=== PATIENT | female | born 1965 | race Caucasian/White ===

== ENCOUNTER → 2020-06-14 08:32 | Outpatient (BNVA) | payer OTHER, SELFPAY | PROVIDERS: Visit Provider Nurse Practitioner Family | DX: Z20.828 Contact with and (suspected) exposure to other viral communicable diseases (principal) | CPT/HCPCS: 87635 ==

== ENCOUNTER 2020-08-09 12:49 | Outpatient (CLI) | payer OTHER, SELFPAY ==
--- NOTE | 2020-08-09 13:03 | XR_ITS ---
WS: [id number] Left knee, AP and lateral views, 08/09/2020 Clinical Data: PAIN Comparison: None. Findings: No fractures or dislocations are seen. There is medial joint compartment narrowing with a small media l femoral condyle osteophyte and medial tibial plateau osteophyte.There is a small spur of the services clerk ior superior patella. XR/XR knee LT 1-2V 44043 Impression: Medial joint compartment narrowing of the left knee and posterior patellar spur ring.
--- NOTE | 2020-08-09 13:03 | XR_ITS ---
WS: [id number] Right knee, AP and lateral views, 08/09/2020 Clinical Data: PAIN Comparison: None. Findings: No fractures or dislocations are seen. There is medial joint compartment narrowing with a small media l tibial plateau osteophyte and a small medial femoral condyle osteophyte. There are synovial calcifi cations in the posterior joint. The patella appears normal.. The patella is intact. The soft tissues are unremarkable. XR/XR knee RT 1-2V [id number] Impression: 1. Medial joint compartment narrowing of the right knee. 2. Synovial calcifications in the posterior joint.
== END 2020-08-09 12:50 | disposition home or self-care (01) ==
LOC: RAD 12:54
PROVIDERS: Visit Provider Internal Medicine
DX: M25.561 Pain in right knee (principal); M25.562 Pain in left knee
CPT/HCPCS: 73560

== ENCOUNTER → 2021-07-02 10:23 | Outpatient (BNVA) | payer OTHER, SELFPAY | PROVIDERS: Visit Provider Nurse Practitioner Family | DX: Z78.0 Asymptomatic menopausal state (principal); G47.30 Sleep apnea, unspecified | CPT/HCPCS: 80053; 80061; 84443; 85025 ==

== ENCOUNTER → 2021-08-07 13:54 | Outpatient (BNVA) | payer OTHER, SELFPAY | PROVIDERS: Visit Provider Nurse Practitioner Family | DX: Z20.822 Contact with and (suspected) exposure to COVID-19 (principal) | CPT/HCPCS: 87635 ==

== ENCOUNTER 2022-02-17 11:53 | Emergency (ER) | payer SELFPAY ==
[2022-02-17 11:55] VITALS: BP 127/81; PULSE 75; RESP 16; TEMP 36.9; O2SAT 97; BMI 50.5
[2022-02-17 12:07] VITALS: BP 155/74; PULSE 72; RESP 15; O2SAT 95
--- NOTE | 2022-02-17 12:08 | ECG_ITS ---
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 Measurements Intervals [place] Rate: 72 P: 38 MO: 166 QRS: -32 QRSD: 88 T: 21 QT: 370 QTc: 408 Interpretive Statements SINUS RHYTHM LEFT AXIS DEVIATION [QRS AXIS < -30] LOW QRS VOLTAGE IN PRECORDIAL LEADS [QRS DEFLECTION < 1.0 mV IN CHEST LEADS] PATTERN CONSISTENT WITH PULMONARY DISEASE No previous ECG available for comparison Electronically Signed On 02-17-2022 20:59:57 CDT by Josh David M.D. [email or web address]/store/[id number]
--- NOTE | 2022-02-17 12:08 | XRR_ITS ---
PROCEDURE INFORMATION: Exam: XR Chest Exam date and time: 02/17/2022 12:32 PM Age: 56 years old Clinical indication: Pain; Angina pectoris; Additional info: Cp TECHNIQUE: Imaging protocol: Radiologic exam of the chest. Views: 1 view. COMPARISON: No relevant prior studies available. FINDINGS: Lungs: Unremarkable. No consolidation. Pleural spaces: Unremarkable. No pleural effusion. No pneumothorax. Heart/Mediastinum: There is a left pericardial fat pad. Bones/joints: Unremarkable. XR/XR chest 1V portable [id number] IMPRESSION: No evidence for acute cardiopulmonary disease.
[2022-02-17 12:14] LABS: Basophils # 0.1 10^3/uL (0.0-0.1); Basophils % 0.8 %; Eosinophils # 0.3 10^3/uL (0.0-0.8); Eosinophils % 3.6 %; Hematocrit 39.4 % (37.0-47.0); Hemoglobin 12.2 g/dL (11.5-15.3); Lymphocytes % 35.4 %; Mean Corpuscular Hemoglobin 28.2 pg (28.0-34.0); Mean Platelet Volume 10.7 fL (7.4-10.4); Monocytes # 0.6 10^3/uL (0.2-0.9); Monocytes % 6.7 %; Neutrophils # 4.49 10^3/uL (1.8-7.7); Neutrophils % 53.3 %; Nucleated Red Blood Cells % 0 %; Platelet Count 335 10^3/cmm (130-400); Red Blood Count 4.33 10^6/uL (4.1-5.3); Red Cell Distribution Width 14.1 % (12.1-15.1); White Blood Count 8.4 10^3/uL (4.0-10.0)
--- NOTE | 2022-02-17 12:23 | ED_ITS ---
HPI - Chest Pain General: Chief Complaint: Chest Pain Stated Complaint: CHEST PAIN Time Seen by Provider: 02/17/22 11:54 History of Present Illness: Patient comes in with chest pain. States she started having midsternal chest pressure this morning. States it was constant and finally relieved with nitro by EMS. States no radiation. Denies fever, cough, congestion, vomiting, or diarrhea. Denies any cardiac history. Denies smoking. Associated symptoms: Deny abdominal pain, dyspnea, fever(s), nausea, palpitations or vomiting Review of Systems Const: Denies: fever(s) or body aches Eyes: Denies: change in vision or blurry vision ENMT: Denies: throat pain or odynophagia Card: Reports: chest pain; Denies: palpitations Resp: Denies: dyspnea or productive cough GI: Denies: abdominal pain, nausea or vomiting : Denies: flank pain or dysuria Musc: Denies: neck pain or back pain Skin/Breast: Denies: rash or pruritus Neuro: Denies: headache(s) or numbness in extremities Psych: Denies: anxiety or change in appetite Endo: Denies: polyuria or excessive sweating PFSH ED PFSH: Family History Father Diabetes Social History Smoking and tobacco status: never smoked Second hand smoke exposure: No Smoking risk assessment/counseling performed?: No Alcohol intake: never Desire information about alcohol rehabilitation?: No Counseling given: No Desire information about substance/drug rehabilitation?: No Counseling given: No Adopted: No Caregiver/support person: No Lives independently: Yes Household members: family Housing: House Marital status: Life Partner Number of children: 3 Highest education level completed: Associate Degree: Academic Program service: No Current occupational status: employed History of recent travel: No Physical Exam Const: COMMON NORMALS: no acute distress, patient oriented x3, healthy appearing and alert HENMT: COMMON NORMALS: normocephalic and atraumatic HEAD & SCALP: normocephalic and atraumatic Eye: COMMON NORMALS: Equal, round and reactive pupils present and EOMs intact bilaterally PUPIL: Yes Equal, round and reactive pupils present Neck/C-Spine: COMMON NORMALS: full ROM and supple Resp: COMMON NORMALS: normal respiratory effort, No retractions and No use of accessory muscles Cardio: COMMON NORMALS: regular rate and regular rhythm RATE: regular rate RHYTHM: regular rhythm GI: COMMON NORMALS: Normal to inspection, nondistended, normoactive bowel sounds present, Soft to palpation and non-tender PALPATION: Yes Soft to palpation Back/Pelvis: COMMON NORMALS: thoracic and lumbar spine normal to inspection and no thoracic nor lumbar tenderness Extremity: COMMON NORMALS: normal to inspection and full ROM Neuro: COMMON NORMALS: patient oriented x3 SENSORIUM/ORIENTATION: Yes alert Psych: COMMON NORMALS: mental status grossly normal and cooperative Skin: COMMON NORMALS: no rashes or lesions noted and no wounds GENERAL SKIN EXAM: no rashes or lesions noted Course Vital Signs: Vital signs: Vital Signs Temperature 98.4 F 02/17/22 11:55 Pulse Rate 71 02/17/22 13:14 Respiratory Rate 16 02/17/22 13:14 Blood Pressure 135/81 02/17/22 13:14 Pulse Oximetry 95 02/17/22 13:14 MDM - Chest Pain Medical Decision Making Patient comes in with chest pain. States she started having midsternal chest pressure this morning. States it was constant and finally relieved with nitro by EMS. States no radiation. Denies fever, cough, congestion, vomiting, or diarrhea. Denies any cardiac history. Denies smoking. Physical exam at this time is unremarkable. Will check labs, EKG, and reassess. On reassessment I talked to the patient about the test results. Will discharge home at this time with precautions to return for worsening or changing symptoms. Lab Data : 02/17/22 12:06 02/17/22 12:06 Radiology Impressions Chest X-Ray 02/17/22 12:08 IMPRESSION: No evidence for acute cardiopulmonary disease. Laboratory Results WBC 8.4 10^3/uL (4.0-10.0) 02/17/22 12:06 RBC 4.33 10^6/uL (4.1-5.3) 02/17/22 12:06 Hgb 12.2 g/dL (11.5-15.3) 02/17/22 12:06 Hct 39.4 % (37.0-47.0) 02/17/22 12:06 MCV 91.0 fl (81-99) 02/17/22 12:06 MCH 28.2 pg (28.0-34.0) 02/17/22 12:06 MCHC 31.0 g/dL (30.0-36.0) 02/17/22 12:06 RDW 14.1 % (12.1-15.1) 02/17/22 12:06 Plt Count 335 10^3/cmm (130-400) 02/17/22 12:06 MPV 10.7 fL (7.4-10.4) H 02/17/22 12:06 Neut % (Auto) 53.3 % 02/17/22 12:06 Lymph % (Auto) 35.4 % 02/17/22 12:06 [place] % (Auto) 6.7 % 02/17/22 12:06 Eos % (Auto) 3.6 % 02/17/22 12:06 Baso % (Auto) 0.8 % 02/17/22 12:06 Neut # (Auto) 4.49 10^3/uL (1.8-7.7) 02/17/22 12:06 Lymph # (Auto) 3.0 10^3/uL (0.8-4.8) 02/17/22 12:06 [place] # (Auto) 0.6 10^3/uL (0.2-0.9) 02/17/22 12:06 Eos # (Auto) 0.3 10^3/uL (0.0-0.8) 02/17/22 12:06 Baso # (Auto) 0.1 10^3/uL (0.0-0.1) 02/17/22 12:06 Nucleated RBC % (auto) 0 % 02/17/22 12:06 Nucleated RBCs # 0.0 /100WBC 02/17/22 12:06 Sodium 137 mmol/L (136-145) 02/17/22 12:06 Potassium 4.1 mmol/L (3.5-5.1) 02/17/22 12:06 Chloride 100 mmol/L (98-107) 02/17/22 12:06 Carbon Dioxide 31 mmol/L (22-29) H 02/17/22 12:06 Anion Gap 10.1 (5-19) 02/17/22 12:06 BUN 13 mg/dL (6-20) 02/17/22 12:06 Creatinine 0.6 mg/dL (0.5-0.9) 02/17/22 12:06 GFR Calculation 104.2 mL/min (90-130) 02/17/22 12:06 Glucose 91 mg/dL (65-115) 02/17/22 12:06 Calculated Osmolality 284 mOsm/kg (285-295) L 02/17/22 12:06 Calcium 9.0 mg/dL (8.5-10.5) 02/17/22 12:06 Total Bilirubin 0.2 mg/dL (0.15-1.2) 02/17/22 12:06 AST 21 U/L (0-32) 02/17/22 12:06 ALT 30 U/L (0-33) 02/17/22 12:06 Alkaline Phosphatase 77 IU/L (35-105) 02/17/22 12:06 Troponin T Baseline 6 ng/L (0-10) 02/17/22 12:06 Troponin T 120 Minute 6.00 ng/L (0-10) 02/17/22 14:28 Delta Troponin T 0 ABS# (0-10) 02/17/22 14:28 Total Protein 6.7 g/dL (6.6-8.7) 02/17/22 12:06 Albumin 3.9 g/dL (3.5-5.2) 02/17/22 12:06 Globulin 2.8 g/dL (1.3-4.6) 02/17/22 12:06 Lipase 42 U/L (13-60) 02/17/22 12:06 Discharge Plan Discharge Patient Disposition: Home Clinical Impression: Nonspecific chest pain Condition: Stable Prescriptions: No Action No Known Home Medications 0RF Discharge Orders: Discharge ED (Routine); Ordered 02/17/22 Ordered By: Flavio Hicks Coding Level of Care Code ED Dough Panner for Chg Fwd Exam Comprehensive
[2022-02-17 12:34] LABS: Alanine Aminotransferase 30 U/L (0-33); Albumin Level 3.9 g/dL (3.5-5.2); Alkaline Phosphatase 77 IU/L (35-105); Anion Gap 10.1 (5-19); Aspartate Amino Transferase 21 U/L (0-32); Blood Urea Nitrogen 13 mg/dL (6-20); Carbon Dioxide 31 mmol/L (22-29); Chloride 100 mmol/L (98-107); Globulin 2.8 g/dL (1.3-4.6); Glomerular Filtration Rate 104.2 mL/min (90-130); Glucose 91 mg/dL (65-115); Lipase 42 U/L (13-60); Osmolality Calculated 284 mOsm/kg (285-295); Potassium 4.1 mmol/L (3.5-5.1); Sodium 137 mmol/L (136-145); Total Bilirubin 0.2 mg/dL (0.15-1.2); Total Protein 6.7 g/dL (6.6-8.7)
[2022-02-17 12:35] LABS: Troponin(5th) Baseline 6 ng/L (0-10)
[2022-02-17 13:14] VITALS: BP 135/81; PULSE 71; RESP 16; O2SAT 95
--- NOTE | 2022-02-17 14:08 | ECG_ITS ---
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 Measurements Intervals [place] Rate: 68 P: 34 AR: 169 QRS: -28 QRSD: 94 T: 13 QT: 392 QTc: 418 Interpretive Statements SINUS RHYTHM BORDERLINE LEFT AXIS DEVIATION [QRS AXIS < -20] LOW QRS VOLTAGE IN PRECORDIAL LEADS [QRS DEFLECTION < 1.0 mV IN CHEST LEADS] PATTERN CONSISTENT WITH PULMONARY DISEASE Compared to ECG 02/17/2022 12:15:06 No significant changes Electronically Signed On 02-17-2022 21:02:24 CDT by Josh David M.D. [id number]
[2022-02-17 15:24] LABS: Troponin 5 2HR Delta 0 ABS# (0-10)
[2022-02-17 15:47] VITALS: BP 124/78; PULSE 73; O2SAT 98
== END 2022-02-17 15:38 | disposition home or self-care (01) ==
PROVIDERS: Emergency Provider Emergency Medicine
DX: R07.89 Other chest pain (principal)
CPT/HCPCS: 36415; 71045; 80053; 83690; 84484; 85025; 93005; 99285

== ENCOUNTER 2022-11-28 17:04 | Emergency (ER) | payer SELFPAY ==
[2022-11-28 17:47] VITALS: BP 149/83; PULSE 88; RESP 17; TEMP 36.6; O2SAT 96; BMI 48.4
[2022-11-28 19:44] LABS: Basophils # 0.1 10^3/uL (0.0-0.1); Basophils % 0.5 %; Eosinophils # 0.1 10^3/uL (0.0-0.8); Eosinophils % 0.8 %; Hematocrit 41.5 % (37.0-47.0); Hemoglobin 12.9 g/dL (11.5-15.3); Lymphocytes # 3.1 10^3/uL (0.8-4.8); Lymphocytes % 21.3 %; Mean Corpuscular HGB Conc 31.1 g/dL (30.0-36.0); Mean Corpuscular Hemoglobin 27.3 pg (28.0-34.0); Mean Corpuscular Volume 87.9 fl (81-99); Mean Platelet Volume 10.3 fL (7.4-10.4); Monocytes # 0.7 10^3/uL (0.2-0.9); Neutrophils # 10.31 10^3/uL (1.8-7.7); Neutrophils % 72.1 %; Nucleated Red Blood Cells % 0 %; Platelet Count 362 10^3/cmm (130-400); Red Blood Count 4.72 10^6/uL (4.1-5.3); Red Cell Distribution Width 13.8 % (12.1-15.1); White Blood Count 14.3 10^3/uL (4.0-10.0)
[2022-11-28] MEDS: lidocaine 2% viscous 15 ML, aluminum-mag hydrox-simethicon 30 ML, sucralfate oral liq 1 GM PO (19:55)
[2022-11-28 20:01] LABS: Anion Gap 15.5 (5-19); Blood Urea Nitrogen 11 mg/dL (6-20); Calcium 8.9 mg/dL (8.5-10.5); Carbon Dioxide 27 mmol/L (22-29); Chloride 103 mmol/L (98-107); Creatinine Clr Calc Pharmacy 150.5396; Glomerular Filtration Rate 103.8 mL/min (90-130); Glucose 98 mg/dL (65-115); Osmolality Calculated 291 mOsm/kg (285-295); Potassium 4.5 mmol/L (3.5-5.1); Sodium 141 mmol/L (136-145)
[2022-11-28 20:05] VITALS: BP 158/98
--- NOTE | 2022-11-28 20:13 | CTR_ITS ---
PROCEDURE INFORMATION: Exam: CT Neck With Contrast Exam date and time: 11/28/2022 9:20 PM Age: 57 years old Clinical indication: Throat pain; Additional info: Dysphagia TECHNIQUE: Imaging protocol: Computed tomography of the neck with contrast. Radiation optimization: All CT scans at this facility use at least one of these dose optimization techniques: automated exposure control; mA and/or kV adjustment per patient size (includes targeted exams where dose is matched to clinical indication); or iterative reconstruction. Contrast material: OMNI 350; Contrast volume: 100 ml; Contrast route: INTRAVENOUS (IV); REPORTING DATA: Count of CT and Cardiac NM exams in prior 12 months: This patient has received 0 known CTs and 0 known cardiac nuclear medicine studies in the 12 months prior to the current study. COMPARISON: CR XR chest 1V portable [id number] 02/17/2022 12:32 PM RADIATION DOSE METRICS: Total DLP (mGy-cm): 297.81 FINDINGS: Pharynx: Left parapharyngeal 12 mm soft tissue density suspected, series 6, image 38 with the effacement of parapharyngeal fat, concerning for a potential underlying mass, finding best seen series 6, image 38 and series 8, image 47, consider correlation with direct visualization. Lingual tonsils appears somewhat enlarged, nonspecific. Larynx: Unremarkable. Epiglottis is normal. Prevertebral and retropharyngeal spaces: Unremarkable. Salivary glands: Normal. Glands are normal in size. Thyroid: Normal. No enlarged or calcified nodules. Lymph nodes: Unremarkable. No lymphadenopathy. Trachea: Visualized trachea is unremarkable. Lungs: Unremarkable as visualized. Bones/joints: Unremarkable. No acute fracture. Soft tissues: Unremarkable. No significant soft tissue swelling. CT/CT neck w con* [id number] IMPRESSION: 1. Left parapharyngeal 12 mm soft tissue density suspected, series 6, image 38 with the effacement of parapharyngeal fat, concerning for a potential underlying mass, finding best seen series 6, image 38 and series 8, image 47, consider correlation with direct visualization. 2. Lingual tonsils appears somewhat enlarged, nonspecific.
--- NOTE | 2022-11-28 20:17 | W.ED.DENTAL ---
HPI - Dental/Oral General: Chief complaint: Dental/Oral Stated complaint: Feels Like something stuck in throat Time Seen by Provider: 11/28/22 19:00 Source: patient Mode of arrival: ambulatory Limitations: no limitations History of Present Illness: 57-year-old female who states that she had taken a Tylenol pill earlier today states she felt like it got stuck states she been having painful swallowing and neck pain since then. Denies any vomiting diarrhea denies any fevers. States she feels like her neck is swollen. Associated symptoms: Reports odynophagia; Denies fever(s) Review of Systems Const: Denies: fever(s), chills, body aches or change in appetite Eyes: Denies: eye discomfort ENMT: Reports: throat pain and odynophagia; Denies: dental pain Card: Denies: chest pain Resp: Denies: dyspnea GI: Denies: abdominal pain, nausea, vomiting or diarrhea : Denies: dysuria Musc: Denies: neck pain or back pain Skin/Breast: Denies: rash Neuro: Denies: headache(s) PFSH ED PFSH: Family History Father Diabetes Social History Smoking and tobacco status: never smoked Second hand smoke exposure: No Smoking risk assessment/counseling performed?: No Alcohol intake: never Desire information about alcohol rehabilitation?: No Counseling given: No Substance/Drug Use: never Desire information about substance/drug rehabilitation?: No Counseling given: No Adopted: No Caregiver/support person: No Lives independently: Yes Household members: family Housing: House Marital status: Life Partner Number of children: 3 Highest education level completed: Associate Degree: Academic Program service: No Current occupational status: employed Physical Exam Const: COMMON NORMALS: no acute distress, patient oriented x3 and healthy appearing HENMT: COMMON NORMALS: normocephalic and atraumatic HEAD & SCALP: normocephalic and atraumatic MOUTH: Normal oral and palatal mucosa present THROAT: posterior oropharynx normal Eye: COMMON NORMALS: conjunctivae normal CONJUNCTIVA: Yes conjunctivae normal Neck/C-Spine: COMMON NORMALS: full ROM and supple Chest: COMMONS NORMALS: normal inspection of the chest and normal palpation of entire chest wall Resp: COMMON NORMALS: normal respiratory effort, No retractions, No use of accessory muscles and clear to auscultation bilaterally AUSCULTATION: clear to auscultation bilaterally Cardio: COMMON NORMALS: regular rate, regular rhythm and No murmurs present (Cardio) RATE: regular rate RHYTHM: regular rhythm GI: COMMON NORMALS: Normal to inspection, nondistended, normoactive bowel sounds present, Soft to palpation, non-tender and no masses PALPATION: Yes Soft to palpation Extremity: COMMON NORMALS: normal to inspection and full ROM Neuro: COMMON NORMALS: patient oriented x3, moves all extremities and no focal motor deficits Psych: COMMON NORMALS: mental status grossly normal, Normal thought process present and cooperative THOUGHT PROCESS: Normal thought process present Skin: COMMON NORMALS: no rashes or lesions noted and no wounds GENERAL SKIN EXAM: no rashes or lesions noted Course Vital Signs: Vital signs: Vital Signs Temperature 97.9 F 11/28/22 17:47 Pulse Rate 88 11/28/22 17:47 Respiratory Rate 17 11/28/22 17:47 Blood Pressure 158/98 11/28/22 20:05 Pulse Oximetry 96 11/28/22 17:47 Oxygen Delivery Me thod Room Air 11/28/22 17:47 MDM - Dental/Oral Medical Decision Making Patient presents here with some dysphagia she does have a small parapharyngeal mass we will start her on steroids on antibiotics spoke to ENT and he is to follow her next week if she has any worsening symptoms return to ER she understands agrees to plan. Medical Records I reviewed the patient's medical records. Lab Data I reviewed the patient's lab results. 11/28/22 19:37 11/28/22 19:[address] 11/28/22 20:13 IMPRESSION: 1. Left parapharyngeal 12 mm soft tissue density suspected, series 6, image 38 with the effacement of parapharyngeal fat, concerning for a potential underlying mass, finding best seen series 6, image 38 and series 8, image 47, consider correlation with direct visualization. 2. Lingual tonsils appears somewhat enlarged, nonspecific. Laboratory Results WBC 14.3 10^3/uL (4.0-10.0) H 11/28/22 19:37 RBC 4.72 10^6/uL (4.1-5.3) 11/28/22 19:37 Hgb 12.9 g/dL (11.5-15.3) 11/28/22 19:37 Hct 41.5 % (37.0-47.0) 11/28/22 19:37 MCV 87.9 fl (81-99) 11/28/22 19:37 MCH 27.3 pg (28.0-34.0) L 11/28/22 19:37 MCHC 31.1 g/dL (30.0-36.0) 11/28/22 19:37 RDW 13.8 % (12.1-15.1) 11/28/22 19:37 Plt Count 362 10^3/cmm (130-400) 11/28/22 19:37 MPV 10.3 fL (7.4-10.4) 11/28/22 19:37 Neut % (Auto) 72.1 % 11/28/22 19:37 Lymph % (Auto) 21.3 % 11/28/22 19:37 [place] % (Auto) 5.0 % 11/28/22 19:37 Eos % (Auto) 0.8 % 11/28/22 19:37 Baso % (Auto) 0.5 % 11/28/22 19:37 Neut # (Auto) 10.31 10^3/uL (1.8-7.7) H 11/28/22 19:37 Lymph # (Auto) 3.1 10^3/uL (0.8-4.8) 11/28/22 19:37 [place] # (Auto) 0.7 10^3/uL (0.2-0.9) 11/28/22 19:37 Eos # (Auto) 0.1 10^3/uL (0.0-0.8) 11/28/22 19:37 Baso # (Auto) 0.1 10^3/uL (0.0-0.1) 11/28/22 19:37 Nucleated RBC % (auto) 0 % 11/28/22 19:37 Nucleated RBCs # 0.0 /100WBC 11/28/22 19:37 Sodium 141 mmol/L (136-145) 11/28/22 19:37 Potassium 4.5 mmol/L (3.5-5.1) 11/28/22 19:37 Chloride 103 mmol/L (98-107) 11/28/22 19:37 Carbon Dioxide 27 mmol/L (22-29) 11/28/22 19:37 Anion Gap 15.5 (5-19) 11/28/22 19:37 BUN 11 mg/dL (6-20) 11/28/22 19:37 Creatinine 0.6 mg/dL (0.5-0.9) 11/28/22 19:37 GFR Calculation 103.8 mL/min (90-130) 11/28/22 19:37 Glucose 98 mg/dL (65-115) 11/28/22 19:37 Calculated Osmolality 291 mOsm/kg (285-295) 11/28/22 19:37 Calcium 8.9 mg/dL (8.5-10.5) 11/28/22 19:37 Discharge Plan Discharge Patient Disposition: Home Clinical Impression: Mass of parapharyngeal space Condition: Stable Prescriptions: New Augmentin 500-125 mg tablet 1 tab PO BID Qty: 14 0RF prednisone 50 mg tablet 50 mg PO DAILY Qty: 5 0RF Discharge Orders: Discharge ED (Routine); Ordered 11/28/22 Ordered By: Timmy Sandra Referrals: Laurent David MD [Physician] - 1-3 days Discharge Diet: Advance as tolerated Discharge Activity: Resume usual activity Patient Instructions: Dysphagia (ED) Coding Level of Care Code ED Community Association Manager for Esteban Knott
[2022-11-28] MEDS: iohexol 350 mg/mL 500 mL Btl (per mL) IV (21:25)
[2022-11-28] MEDS: dexamethasone 10 mg/mL INJ IVP (22:22)
[2022-11-28 22:35] VITALS: BP 144/85; PULSE 85; RESP 20; O2SAT 95
--- NOTE | 2022-11-29 10:03 | DCPLANNER ---
Addendum entered by Nataliya House 12/10/22 14:29: Patient had a follow up appointment scheduled with ENT - patient did attend appointment. Addendum entered by Nataliya House 12/03/22 11:40: Patient has a follow up appointment scheduled for Saturday, December 03, 2022 at 2:[address] David at ENT. Original Note: credit portfolio manager had message to schedule a follow up appointment for patient with ENT. credit portfolio manager sent patients information to the front office staff at ENT. Patients information will be printed and reviewed. Clinic will call patient with appointment information.
--- NOTE | 2022-11-29 15:36 | DCPLANNER ---
TCM called patient due to no primary care physician - patient would like help in getting established with a provider. Patient was given the information to [facility] due to patient not having insurance, so patient can apply for the sliding scale.
== END 2022-11-28 22:30 | disposition home or self-care (01) ==
PROVIDERS: Emergency Provider Emergency Medicine
DX: J39.2 Other diseases of pharynx (principal)
CPT/HCPCS: 36415; 70491; 80048; 85025; 96374; 99285; J1100; Q9967

== ENCOUNTER 2022-12-10 10:47 | Emergency (ER) | payer SELFPAY ==
[2022-12-10 10:49] VITALS: BP 125/86; RESP 18; TEMP 36.8; O2SAT 98
--- NOTE | 2022-12-10 10:55 | XRR_ITS ---
PROCEDURE INFORMATION: Exam: XR Chest Exam date and time: 12/10/2022 11:26 AM Age: 57 years old Clinical indication: Pain; Angina pectoris; Additional info: Chest pain TECHNIQUE: Imaging protocol: Radiologic exam of the chest. Views: 1 view. COMPARISON: CR XR chest 1V portable [id number] 02/17/2022 12:32 PM FINDINGS: Lungs: Unremarkable. No consolidation. Pleural spaces: Unremarkable. No pleural effusion. No pneumothorax. Heart/Mediastinum: Unremarkable. No cardiomegaly. Bones/joints: Unremarkable. XR/XR chest 1V portable [id number] IMPRESSION: No acute findings.
--- NOTE | 2022-12-10 10:55 | ECG_ITS ---
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 Measurements Intervals [place] Rate: 88 P: 16 IA: 159 QRS: 215 QRSD: 88 T: 15 QT: 355 QTc: 430 Interpretive Statements SINUS RHYTHM INDETERMINATE AXIS LOW QRS VOLTAGE IN PRECORDIAL LEADS [QRS DEFLECTION < 1.0 mV IN CHEST LEADS] POSSIBLE RIGHT VENTRICULAR CONDUCTION DELAY [RSR (QR) IN V1/V2] POSSIBLE ANTERIOR MYOCARDIAL INFARCTION , PROBABLY OLD [30 ms Q WAVE IN V3/V4, OR R < 0.2 mV IN V4] Compared to ECG 02/17/2022 14:07:25 Indeterminate axis now present Myocardial infarct finding now present Electronically Signed On 12-10-2022 16:53:42 CDT by Bismark Whiting M.D. [id number]
[2022-12-10 11:06] VITALS: RESP 18
[2022-12-10 11:07] LABS: Basophils # 0.1 10^3/uL (0.0-0.1); Basophils % 0.7 %; Eosinophils # 0.3 10^3/uL (0.0-0.8); Eosinophils % 2.1 %; Hematocrit 42.7 % (37.0-47.0); Hemoglobin 13.3 g/dL (11.5-15.3); Lymphocytes # 3.3 10^3/uL (0.8-4.8); Lymphocytes % 24.3 %; Mean Corpuscular HGB Conc 31.1 g/dL (30.0-36.0); Mean Corpuscular Hemoglobin 27.5 pg (28.0-34.0); Mean Corpuscular Volume 88.2 fl (81-99); Mean Platelet Volume 10.2 fL (7.4-10.4); Monocytes # 0.9 10^3/uL (0.2-0.9); Monocytes % 6.6 %; Neutrophils # 8.96 10^3/uL (1.8-7.7); Neutrophils % 65.9 %; Nucleated Red Blood Cells % 0 %; Platelet Count 392 10^3/cmm (130-400); Red Blood Count 4.84 10^6/uL (4.1-5.3); Red Cell Distribution Width 14.4 % (12.1-15.1); White Blood Count 13.6 10^3/uL (4.0-10.0)
--- NOTE | 2022-12-10 11:18 | ED_ITS ---
HPI - Chest Pain General: Chief Complaint: Chest Pain Stated Complaint: chest pain Time Seen by Provider: 12/10/22 10:53 History of Present Illness: Patient presents to the ER by EMS with complaints of chest pain. Patient's been having left chest pain underneath left breast that does not radiate since yesterday. Patient is tender to palpation over left breast sternal region that reproduces the pain. Patient has never had this pain before. Patient does not know anything that makes this pain better or worse. Patient denies any shortness of breath nausea vomiting diaphoresis. MD complaint: chest pain Pertinent past history: other (Obesity) Onset (ago): day(s) (1 day ago) Timing of current episode: constant (But decreasing almost gone) Prior episodes: No Onset: during rest Pain location: left chest Pain radiation: none Severity: moderate Quality: aching Relieving factors: nothing Exacerbating factors: nothing Associated symptoms: Reports no associated symptoms; Deny abdominal pain, dyspnea, fever(s), nausea, palpitations or vomiting Review of Systems General: Reports: 10 or more systems reviewed and unremarkable except in HPI and below Const: Denies: fever(s) or chills Eyes: Denies: change in vision or blurry vision ENMT: Denies: throat pain or enlarged tonsils Card: Reports: chest pain; Denies: palpitations or irregular heart rhythm Resp: Denies: dyspnea or non-productive cough GI: Denies: abdominal pain, nausea or vomiting : Denies: flank pain, difficulty voiding or dysuria Musc: Denies: neck pain, back pain or extremity pain Skin/Breast: Denies: rash or pruritus PFSH ED PFSH: Medical History History of kidney stones Surgical History Hx of section Family History Father Diabetes Social History Smoking and tobacco status: never smoked Second hand smoke exposure: No Smoking risk assessment/counseling performed?: No Alcohol intake: never Desire information about alcohol rehabilitation?: No Counseling given: No Substance/Drug Use: never Desire information about substance/drug rehabilitation?: No Counseling given: No Adopted: No Caregiver/support person: No Lives independently: Yes Household members: family Housing: House Marital status: Life Partner Number of children: 3 Highest education level completed: Associate Degree: Academic Program service: No Current occupational status: employed Physical Exam Const: COMMON NORMALS: no acute distress, average body habitus, patient oriented x3, no limitations, healthy appearing, alert and well nourished HENMT: COMMON NORMALS: normocephalic, atraumatic, hearing grossly normal bilaterally, external ears normal, Normal external nose present and moist oral mucous membranes HEAD & SCALP: normocephalic and atraumatic NOSE: Normal external nose present EXTERNAL EAR: Yes external ears normal Eye: COMMON NORMALS: Equal, round and reactive pupils present, EOMs intact bilaterally, conjunctivae normal and no scleral icterus CONJUNCTIVA: Yes conjunctivae normal PUPIL: Yes Equal, round and reactive pupils present Neck/C-Spine: COMMON NORMALS: full ROM, no lymphadenopathy, supple, no meningeal signs, no JVD and Thyroid normal THYROID: Thyroid normal Lymph: LYMPHATIC: no lymphadenopathy noted Chest: COMMONS NORMALS: normal inspection of the chest; negative for normal palpation of entire chest wall (Palpation of left chest sternal region reproduces pain.) Resp: COMMON NORMALS: normal respiratory effort, No retractions, No use of accessory muscles and clear to auscultation bilaterally AUSCULTATION: clear to auscultation bilaterally Cardio: COMMON NORMALS: no JVD, regular rate, regular rhythm, S1 normal heart sound present, S2 normal heart sound present, No gallops present (Cardio), No clicks present (Cardio) and No murmurs present (Cardio) RATE: regular rate RHYTHM: regular rhythm HEART SOUNDS: S1 normal heart sound present and S2 normal heart sound present GI: COMMON NORMALS: Normal to inspection, nondistended, normoactive bowel sounds present, Soft to palpation, non-tender, No hepatosplenomegaly present and no masses PALPATION: Yes Soft to palpation and Yes No hepatosplenomegaly present : COMMON NORMALS: Yes no CVA tenderness BLADDER/KIDNEY EXAM: Yes no CVA tenderness Back/Pelvis: COMMON NORMALS: no CVA tenderness Neuro: COMMON NORMALS: patient oriented x3 SENSORIUM/ORIENTATION: Yes alert MENINGEAL SIGNS: Yes no meningeal signs Course Vital Signs: Vital signs: Vital Signs Temperature 98.2 F 05/16/23 10:49 Respiratory Rate 18 12/10/22 11:06 Blood Pressure 125/86 12/10/22 10:49 Pulse Oximetry 98 12/10/22 10:49 Oxygen Delivery Me thod Room Air 12/10/22 10:49 MDM - Chest Pain Medical Decision Making Presents to the ER with nonradiating chest pain that is reproducible with palpation. Physical exam was performed, with a normal cardiac work-up including labs with serial EKGs and troponins was obtained along with a chest x-ray. All of which is were essentially unremarkable with a troponin and 2-hour troponin of 6 and a 2-hour delta troponin of 0. The patient was informed of these results as well as the likelihood of this being noncardiac in nature. Patient is ready to go home. Patient will be discharged with diagnosis of atypical chest pain and is to follow-up with her primary care practitioner within the next 1 to 2 weeks. Differential Diagnosis Unlikely acute massive pulmonary embolism, acute myocardial infarction, cardiac arrest or sudden cardiac Medical Records I reviewed the patient's medical records. Lab Data I reviewed the patient's lab results. 12/10/22 11:00 12/10/22 11:00 Radiology Impressions Chest X-Ray 12/10/22 10:55 IMPRESSION: No acute findings. Laboratory Results WBC 13.6 10^3/uL (4.0-10.0) H 12/10/22 11:00 RBC 4.84 10^6/uL (4.1-5.3) 12/10/22 11:00 Hgb 13.3 g/dL (11.5-15.3) 12/10/22 11:00 Hct 42.7 % (37.0-47.0) 12/10/22 11:00 MCV 88.2 fl (81-99) 12/10/22 11:00 MCH 27.5 pg (28.0-34.0) L 12/10/22 11:00 MCHC 31.1 g/dL (30.0-36.0) 12/10/22 11:00 RDW 14.4 % (12.1-15.1) 12/10/22 11:00 Plt Count 392 10^3/cmm (130-400) 12/10/22 11:00 MPV 10.2 fL (7.4-10.4) 12/10/22 11:00 Neut % (Auto) 65.9 % 12/10/22 11:00 Lymph % (Auto) 24.3 % 12/10/22 11:00 [place] % (Auto) 6.6 % 12/10/22 11:00 Eos % (Auto) 2.1 % 12/10/22 11:00 Baso % (Auto) 0.7 % 12/10/22 11:00 Neut # (Auto) 8.96 10^3/uL (1.8-7.7) H 12/10/22 11:00 Lymph # (Auto) 3.3 10^3/uL (0.8-4.8) 12/10/22 11:00 [place] # (Auto) 0.9 10^3/uL (0.2-0.9) 12/10/22 11:00 Eos # (Auto) 0.3 10^3/uL (0.0-0.8) 12/10/22 11:00 Baso # (Auto) 0.1 10^3/uL (0.0-0.1) 12/10/22 11:00 Nucleated RBC % (auto) 0 % 12/10/22 11:00 Nucleated RBCs # 0.0 /100WBC 12/10/22 11:00 Sodium 141 mmol/L (136-145) 12/10/22 11:00 Potassium 3.9 mmol/L (3.5-5.1) 12/10/22 11:00 Chloride 103 mmol/L (98-107) 12/10/22 11:00 Carbon Dioxide 26 mmol/L (22-29) 12/10/22 11:00 Anion Gap 15.9 (5-19) 12/10/22 11:00 BUN 18 mg/dL (6-20) 12/10/22 11:00 Creatinine 0.6 mg/dL (0.5-0.9) 12/10/22 11:00 GFR Calculation 103.8 mL/min (90-130) 12/10/22 11:00 Glucose 94 mg/dL (65-115) 12/10/22 11:00 Calculated Osmolality 294 mOsm/kg (285-295) 12/10/22 11:00 Calcium 8.9 mg/dL (8.5-10.5) 12/10/22 11:00 Total Bilirubin 0.3 mg/dL (0.15-1.2) 12/10/22 11:00 AST 17 U/L (0-32) 12/10/22 11:00 ALT 34 U/L (0-33) H 12/10/22 11:00 Alkaline Phosphatase 79 U/L (35-105) 12/10/22 11:00 Troponin T Baseline 6 ng/L (0-10) 12/10/22 11:00 Troponin T 120 Minute 6.00 ng/L (0-10) 12/10/22 12:49 Delta Troponin T 0 ABS# (0-10) 12/10/22 12:49 NT-Pro-B Natriuret Pep 36 pg/mL (0-125) 12/10/22 11:00 Total Protein 7.4 g/dL (6.6-8.7) 12/10/22 11:00 Albumin 4.1 g/dL (3.5-5.2) 12/10/22 11:00 Globulin 3.3 g/dL (1.3-4.6) 12/10/22 11:00 EKG Data EKG 1: I personally reviewed and interpreted this EKG as follows: EKG interpretation date: 12/10/22 EKG interpretation time: 11:03 Prior EKG tracings: not available for review Interpretation: EKG showed ventricular rate of 88 bpm, [place] interval 159, QRS duration of 88, QTc of 400, sinus rhythm with indeterminate axis, possible right ventricular conduction delay, possible anterior LA probably old with Q waves in V3 V4 EKG 2: I personally reviewed and interpreted this EKG as follows: EKG interpretation date: 12/10/22 EKG interpretation time: 13:03 Prior EKG tracings: available for review Interpretation: EKG showed ventricular rate of 87 bpm, [place] interval 166, QRS duration of 88, QTc of 408, normal sinus rhythm indeterminate axis possible anterior LA probably old with Q waves in V3 and V4 Discharge Plan Discharge Patient Disposition: Home Clinical Impression: Atypical chest pain Condition: Stable Prescriptions: No Action Janet Back and Body 500-32.5 mg Tablet 2 tab PO QPM PRN (Reason: Pain) Discharge Orders: Discharge ED (Routine); Ordered 12/10/22 Ordered By: Mk Avila Patient Instructions: Chest Pain (ED) Coding Level of Care Code ED Pull Socket Assembler for Esteban Knott
[2022-12-10 11:26] LABS: Troponin(5th) Baseline 6 ng/L (0-10)
[2022-12-10 11:34] LABS: Alanine Aminotransferase 34 U/L (0-33); Albumin Level 4.1 g/dL (3.5-5.2); Alkaline Phosphatase 79 U/L (35-105); Anion Gap 15.9 (5-19); Aspartate Amino Transferase 17 U/L (0-32); Blood Urea Nitrogen 18 mg/dL (6-20); Calcium 8.9 mg/dL (8.5-10.5); Carbon Dioxide 26 mmol/L (22-29); Chloride 103 mmol/L (98-107); Globulin 3.3 g/dL (1.3-4.6); Glomerular Filtration Rate 103.8 mL/min (90-130); Glucose 94 mg/dL (65-115); NT Pro B Type Natriuretic Pept 36 pg/mL (0-125); Osmolality Calculated 294 mOsm/kg (285-295); Potassium 3.9 mmol/L (3.5-5.1); Sodium 141 mmol/L (136-145); Total Bilirubin 0.3 mg/dL (0.15-1.2); Total Protein 7.4 g/dL (6.6-8.7)
--- NOTE | 2022-12-10 13:03 | ECG_ITS ---
[facility] Test Date: 2022-12-10 Pat Name: Isabell Ariza Department: Room: Gender: Female Backside Grinder: : 1965 Requested By: Mk Avila Order Number: [id number] Jorge MD: Bismark Whiting M.D. Measurements Intervals [place] Rate: 87 P: 19 DC: 166 QRS: 204 QRSD: 88 T: 7 QT: 363 QTc: 438 Interpretive Statements SINUS RHYTHM INDETERMINATE AXIS LOW QRS VOLTAGE IN PRECORDIAL LEADS [QRS DEFLECTION < 1.0 mV IN CHEST LEADS] POSSIBLE ANTERIOR MYOCARDIAL INFARCTION , PROBABLY OLD [30 ms Q WAVE IN V3/V4, OR R < 0.2 mV IN V4] Compared to ECG 12/10/2022 11:03:48 No significant changes Electronically Signed On 12-10-2022 16:58:23 CDT by Bismark Whiting M.D. [id number]
[2022-12-10 13:32] LABS: Troponin 5 2HR Delta 0 ABS# (0-10)
--- NOTE | 2022-12-25 11:28 | DCPLANNER ---
TCM called patient due to no primary care physician - no answer at this time.
== END 2022-12-10 13:55 | disposition home or self-care (01) ==
PROVIDERS: Emergency Provider Emergency Medicine
DX: R07.89 Other chest pain (principal)
CPT/HCPCS: 36415; 71045; 80053; 83880; 84484; 85025; 93005; 99285

== ENCOUNTER 2024-03-09 10:29 | Outpatient (CLI) | payer MEDICAID, SELFPAY ==
--- NOTE | 2024-03-09 10:40 | MM_ITS ---
WS: [id number] BILATERAL 3D TOMOSYNTHESIS DIGITAL SCREENING MAMMOGRAPHY WITH CAD CLINICAL INFORMATION: SCREENING HISTORY: Screening mammogram. No current complaints. COMPARISON: New baseline TECHNIQUE: Bilateral CC and MLO views. FINDINGS: Scattered fibroglandular densities bilaterally. No suspicious focal mass, asymmetry, calcifications, or architectural distortion. No evidence of malignancy. Incidental punctate and lucent centered calci fications. MM/[place] [id number] IMPRESSION: BI-RADS: 2-Benign FOLLOW UP: 1 Year Follow-up Recommend return to annual screening mammography.
== END 2024-03-09 10:30 | disposition home or self-care (01) ==
LOC: MOBLMAM 10:36
PROVIDERS: PCP Nurse Practitioner Family; Visit Provider Nurse Practitioner Family
DX: Z12.31 Encounter for screening mammogram for malignant neoplasm of breast (principal)
CPT/HCPCS: 77063; 77067

== ENCOUNTER 2024-04-22 05:53 | Day surgery (SDC) | payer MEDICAID, SELFPAY ==
[2024-04-22 06:05] VITALS: BP 147/108; RESP 84; TEMP 36.1; O2SAT 96; BMI 46.0
[2024-04-22] MEDS: sodium chloride 0.9% 1,000 ML 30 ML IV (06:13)
--- NOTE | 2024-04-22 06:20 | ANES.PREANE2 ---
Pre-Anesthetic Assessment Height/Weight: Height 1.68 m Weight 129.274 kg Temp Resp BP Pulse Ox O2 Del Method 97 F L 84 H 147/108 96 Room Air 04/22/24 06:05 04/22/24 06:05 04/22/24 06:05 04/22/24 06:05 04/22/24 06:05 Preop Diagnosis: Screening colonoscopy Operation Date: 04/22/24 07:00 Proposed Procedures p Colonoscopy - 50533, G0121, Z12.11(Not Applicable) - Elmer Molina MD Familial anesthetic complications: None Was Beta Ariadne taken within 24 hours: N/A Was Clonidine taken within 24 hours: N/A Last intake: Intake Last Liquid Date 04/21/24 Last Liquid Time 22:00 Last Solid Date 04/20/24 Last Solid Time 22:00 Social No alcohol and No tobacco (Marijuana once in a while, last smoked 2 days ago) Exam alert, oriented x 3, clear to auscultation bilaterally and regular rate & rhythm Airway Submandibular: within normal limits Cervical ROM: within normal limits Mallampati: Class II Dentition: chipped (Front teeth) and full History/ROS No significant history except as noted and No significant complaints Pulmonary Exertional Dyspnea and Sleep Apnea (Wears CPAP) CV/HEM None reported Hx kidney stones Hepatic None reported GI None reported Metabolic Morbid Obesity Musc/skel Lower Back Pain Neuropsych Anxiety, Depression and Neuropathy Anesthetic Plan ASA status: 3 Anesthesia: Anesthesia Evaluation, General and MAC Risk of > 500 ml blood loss (7ml/kg in children): No Medications/Allergies Home Medications Medication Instructions Recorded Confirmed Last Taken Type aspirin-caffeine 500 mg-32.5 mg 2 tab PO QPM PRN Pain 12/10/22 04/20/24 04/17/24 History tablet (Janet Back and Body) Allergies Allergy/AdvReac Type Severity Reaction Status Date / Time No Known Allergies Allergy Verified 04/14/24 08:06 Current Medications Generic Name Dose Route Start Last Admin Trade Name Freq PRN Reason Stop Dose Admin Sodium Chloride 1,000 mls @ 30 mls/hr 04/22/24 06:00 04/22/24 06:13 Sodium Chloride 0.9% IV 30 mls/hr .Q24H ANGELITA Administration PFSH Anesthesia Medical History History of kidney stones Surgical History Hx of section Family History Father Diabetes Social History Smoking and tobacco/nicotine status: never used tobacco/nicotine Second hand smoke exposure: No Alcohol intake: never Substance/Drug Use: never Adopted: No Caregiver/support person: No Lives independently: Yes Household members: family Housing: House Marital status: Life Partner Number of children: 3 Highest education level completed: Associate Degree: Academic Program service: No Current occupational status: employed Data Anesthesia Cardiac Studies: No Data to Display
--- NOTE | 2024-04-22 06:40 | P.HPUD_ITS ---
Surgery/Procedure H&P Update DATE OF PROCEDURE: April 22, 2024 DATE H&P PERFORMED: 04/12/24 H&P UPDATE INFORMATION: I have reviewed H&P completed within last 30 days, I have examined patient prior to procedure, No changes to prior documentation and H&P is in [facility] EMR on date indicated PREOP DIAGNOSIS: Screening colonoscopy PLANNED PROCEDURE: Operation Date: 04/22/24 07:00 Proposed Procedures p Colonoscopy - 99792, G0121, Z12.11(Not Applicable) - Elmer Molina MD
[2024-04-22 07:33] VITALS: BP 109/59; PULSE 71; RESP 14; TEMP 36.1; O2SAT 95
[2024-04-22 07:38] VITALS: BP 115/67; PULSE 69; RESP 18; O2SAT 95
[2024-04-22 07:48] VITALS: BP 126/61; PULSE 67; RESP 20; O2SAT 98
--- NOTE | 2024-04-22 08:10 | ANE.PACU2 ---
Inpatient post-anesthesia follow up: Airway intact: Yes Vital signs: Temperature 97.0 F Pulse Rate 67 Respiratory Rate 20 Blood Pressure 126/61 Pulse Oximetry 98 Oxygen Delivery Me thod Room Air Oxygen Flow Rate Fraction of Inspir ed Oxygen Hydration adequate: Yes Nausea and vomiting: No Pain level: 1 Mental status: Baseline
== END 2024-04-22 08:12 | disposition home or self-care (01) ==
PROVIDERS: PCP Nurse Practitioner Family; Visit Provider Surgery
PROC: 0DJD8ZZ Inspection of Lower Intestinal Tract, Via Natural or Artificial Opening Endoscopic (ICD-10-PCS; CPT 45378; principal; 2024-04-22 07:00)
DX: Z12.11 Encounter for screening for malignant neoplasm of colon (principal); K57.30 Diverticulosis of large intestine without perforation or abscess without bleeding; D12.2 Benign neoplasm of ascending colon; D12.5 Benign neoplasm of sigmoid colon; D12.3 Benign neoplasm of transverse colon; K08.89 Other specified disorders of teeth and supporting structures; G47.30 Sleep apnea, unspecified; R03.0 Elevated blood-pressure reading, without diagnosis of hypertension; E66.01 Morbid (severe) obesity due to excess calories; Z68.42 Body mass index [BMI] 45.0-49.9, adult; Z79.82 Long term (current) use of aspirin
CPT/HCPCS: 45380; 88305; J2704; J7030

== ENCOUNTER 2024-05-18 20:00 | Outpatient (CLI) | payer MEDICAID, SELFPAY | END 2024-05-18 20:01 | disposition home or self-care (01) | LOC: SLEEP 21:30 | PROVIDERS: PCP Nurse Practitioner Family; Visit Provider Nurse Practitioner Family | DX: G47.33 Obstructive sleep apnea (adult) (pediatric) (principal); G47.36 Sleep related hypoventilation in conditions classified elsewhere | CPT/HCPCS: 95810 ==

== ENCOUNTER 2024-09-20 20:00 | Outpatient (CLI) | payer MEDICAID, SELFPAY | END 2024-09-20 20:01 | disposition home or self-care (01) | LOC: SLEEP 23:31 | PROVIDERS: PCP Nurse Practitioner Family; Visit Provider Nurse Practitioner Family | DX: G47.33 Obstructive sleep apnea (adult) (pediatric) (principal) | CPT/HCPCS: 95811 ==